=== PATIENT | male | born 2000 | race Hispanic/Latino ===

== ENCOUNTER 2022-08-18 07:34 | Day surgery (SDC) | payer BC ==
[2022-08-17 10:52] VITALS: BMI 17.2
[2022-08-18] MEDS ORDERED: CEFAZOLIN 1 GM VIAL ONE (09:38)
[2022-08-18] MEDS ORDERED: Sodium Chloride 0.9% 100 ML ONE (09:39)
[2022-08-18] MEDS ORDERED: fentaNYL PF 100 MCG/2 ML SYRINGE ONE (11:08)
[2022-08-18] MEDS ORDERED: Bupivacaine 0.25% HCL 30 ML VIAL ONE (11:12)
[2022-08-18] MEDS ORDERED: Dexamethasone 20 MG/5 ML VIAL ONE (11:29)
[2022-08-18] MEDS ORDERED: PROPOFOL 200 MG/20 ML VIAL ONE (11:29)
[2022-08-18] MEDS ORDERED: Ketorolac Tromethamine 30 MG/ML VIAL ONE (11:29)
[2022-08-18] MEDS ORDERED: Lidocaine 1% PF 5 ML VIAL ONE (11:29)
[2022-08-18] MEDS ORDERED: Ondansetron PF 4 MG/2 ML Vial ONE (11:29)
[2022-08-18] MEDS ORDERED: HYDROcodone/Acetaminophen 5/325 mg Tablet ONE (13:53)
== END 2022-08-18 14:35 | disposition home or self-care (01) ==
LOC: SDC 07:34
PROVIDERS: ATTEND Urology
PROC: 0VT90ZZ Resection of Right Testis, Open Approach (ICD-10-PCS; principal; 2022-08-18)
DX: C62.11 Malignant neoplasm of descended right testis (principal); M41.9 Scoliosis, unspecified
CPT/HCPCS: 88309; 88341; 88342; J0690; J1100; J1885; J2405; J2704; J3490; S0020

== ENCOUNTER 2023-01-19 10:44 | Outpatient (CLI) | payer BC ==
[~2023-01-19 10:44] MED LIST: Iopamidol 370 76% 100 ML VIAL ONE
== END 2023-01-19 10:45 | disposition home or self-care (01) ==
LOC: BICCT 10:44
PROVIDERS: ATTEND Urology
DX: C62.91 Malignant neoplasm of right testis, unspecified whether descended or undescended (principal)
CPT/HCPCS: 74177; Q9967